=== PATIENT | female | born 1955 | race Caucasian/White ===

== ENCOUNTER 2018-10-09 08:12 | Outpatient (CLI) | payer BC ==
--- NOTE | 2018-10-09 14:08 | MMO ---
Bilateral MAMMO Bilat Screen DDI. CLINICAL HISTORY: Patient is 63 years old and is seen for screening. The patient has no family history of breast cancer. The patient has no personal history of cancer. VIEWS: The views performed were: bilateral craniocaudal and bilateral mediolateral oblique. This study has been interpreted with the assistance of computer-aided detection. MAMMOGRAM FINDINGS: There are scattered fibroglandular densities. There are calcifications seen in the upper-outer region of the left breast. In the right breast, there are no suspicious masses, calcifications or areas of architectural distortion. IMPRESSION: CALCIFICATIONS IN THE LEFT BREAST REQUIRE ADDITIONAL EVALUATION. ADDITIONAL IMAGING. ACR BI-RADS Category 0 - Incomplete: Need additional imaging evaluation. [facility] will notify the patient of the need for additional imaging services. MAMMOGRAPHY NOTE: 1. A negative mammogram report should not delay a biopsy if a dominant of clinically suspicious mass is present. 2. Approximately 10% to 15% of breast cancers are not detected by mammography. 3. Adenosis and dense breasts may obscure an underlying neoplasm.
== END 2018-10-09 08:13 | disposition home or self-care (01) ==
LOC: SCSMAMMO 08:12
PROVIDERS: ATTEND Family Medicine
DX: Z12.31 Encounter for screening mammogram for malignant neoplasm of breast (principal); R92.0 Mammographic microcalcification found on diagnostic imaging of breast
CPT/HCPCS: 77067

== ENCOUNTER 2018-10-20 14:07 | Outpatient (CLI) | payer BC ==
--- NOTE | 2018-10-20 15:01 | MMO ---
Left Breast MAMMO Unilat Diag DDI LT+MISTY. CLINICAL HISTORY: Patient is 63 years old and is seen for diagnostic exam. VIEWS: The views performed were: . FILMS COMPARED: The present examination has been compared to a prior imaging study performed at [facility] on 10/09/2018. MAMMOGRAM FINDINGS: The additional views show pleomorphic calcifications. IMPRESSION: FINDING IN THE LEFT BREAST IS SUSPICIOUS. A STEREOTACTIC BREAST BIOPSY IS RECOMMENDED. RESULTS DISCUSSED WITH DR. HADLEY 10/20/18 THE RESULTS OF THIS EXAM WERE SENT TO THE PATIENT. ACR BI-RADS Category 4 - Suspicious abnormality - biopsy should be considered MAMMOGRAPHY NOTE: 1. A negative mammogram report should not delay a biopsy if a dominant of clinically suspicious mass is present. 2. Approximately 10% to 15% of breast cancers are not detected by mammography. 3. Adenosis and dense breasts may obscure an underlying neoplasm.
== END 2018-10-20 14:08 | disposition home or self-care (01) ==
LOC: BICMAMMO 14:07
PROVIDERS: ATTEND Family Medicine
DX: R92.1 Mammographic calcification found on diagnostic imaging of breast (principal)
CPT/HCPCS: G0279

== ENCOUNTER → 2019-01-19 | Day surgery (SDC) | payer BC | LOC: MAMMO 06:42 | PROVIDERS: ATTEND Family Medicine | DX: R92.8 Other abnormal and inconclusive findings on diagnostic imaging of breast (principal); Z53.9 Procedure and treatment not carried out, unspecified reason ==

== ENCOUNTER 2019-03-22 05:52 | Outpatient (CLI) | payer BC ==
[2019-03-22 09:54] LABS: #Basophils 0.1 thou/uL (0.0-0.2); #Eosinphils 0.1 thou/uL (0.0-0.7); #Lymphocytes 1.9 thou/uL (1.20-3.40); #Monocytes 0.6 thou/uL (0.11-0.59); #Neutrophils 3.1 thou/uL (1.40-6.50); %Basophils 0.9 % (0.0-1.0); %Eosinophils 2.2 % (0.0-10.0); %Monocytes 10.6 % (0.0-10.0); %Neutrophils 53.3 % (42.0-75.0); Hemoglobin 13.6 g/dL (12.0-16.0); Mean Corpuscular HGB CONC 33.2 g/dL (32.0-36.0); Mean Corpuscular Hemoglobin 28.4 pg (27.0-31.0); Mean Corpuscular Volume 85.7 fL (78.0-98.0); Mean Platelet Volume 7.8 fL (7.4-10.4); Platelet Count 285 thou/uL (130-400); RBC Distribution Width 12.7 % (11.5-14.5); Red Blood Cell (RBC) Count 4.78 mill/uL (4.20-5.40); White Blood Cell (WBC) Count 5.8 thou/uL (4.8-10.8)
[2019-03-22 10:04] LABS: Anion Gap 14 mmol/L (10-20); BUN (Urea Nitrogen) 20 mg/dL (9.8-20.1); Calc. Creatinine Clearance 0 mL/min (70-130); Calcium 9.9 mg/dL (7.8-10.44); Carbon Dioxide 27 mmol/L (23-31); Chloride 104 mmol/L (98-107); Estimated GFR-MDRD 70; Glucose 101 mg/dL (80-115); Potassium 4.4 mmol/L (3.5-5.1); Sodium 141 mmol/L (136-145)
== END 2019-03-22 05:53 | disposition home or self-care (01) ==
LOC: LABBT 05:52
PROVIDERS: ATTEND Surgery
DX: Z01.812 Encounter for preprocedural laboratory examination (principal); N63.20 Unspecified lump in the left breast, unspecified quadrant; M79.9 Soft tissue disorder, unspecified
CPT/HCPCS: 80048; 85025

== ENCOUNTER 2019-03-23 06:47 | Day surgery (SDC) | payer BC ==
[2019-03-22 09:05] VITALS: BMI 44.4
[2019-03-23] MEDS ORDERED: Bupivacaine HCl 0.5%/Epinephrine 1:200,000/PF 30 ml Vial ONE (08:29)
[2019-03-23] MEDS ORDERED: Lidocaine 2% PF 5 ML VIAL ONE (08:29)
[2019-03-23] MEDS ORDERED: Fentanyl 100 MCG/2 ML VIAL ONE ×3 (08:31→10:14)
[2019-03-23] MEDS ORDERED: Ondansetron PF 4 MG/2 ML Vial ONE (10:14)
[2019-03-23] MEDS ORDERED: PROPOFOL 200 MG/20 ML VIAL ONE (10:14)
[2019-03-23] MEDS ORDERED: Lidocaine 1% PF 5 ML VIAL ONE (10:14)
--- NOTE | 2019-03-23 10:28 | OP ---
DATE OF PROCEDURE: 03/23/2019 PREOPERATIVE DIAGNOSES: 1. Abnormal left breast mass. 2. Right upper back soft tissue mass. POSTOPERATIVE DIAGNOSES: 1. Abnormal left breast mass. 2. Right upper back soft tissue mass. PROCEDURES PERFORMED: 1. Excision of left breast mass after needle localization. 2. Excision of greater than 18 cm soft tissue mass of back excision. ANESTHESIA: General. ESTIMATED BLOOD LOSS: Minimal. COMPLICATIONS: None. SPECIMEN: Left breast mass marked with 2 short superior and 1 long lateral, sent to Path for final diagnosis. Soft tissue mass sent to Path for final diagnosis. DESCRIPTION OF PROCEDURE: The patient was taken to the operating room and placed supine on the table. After general anesthetic was obtained, the left breast was prepped and draped in a sterile fashion. Incision was made near needle localization wire. Flaps were raised superomedially, inferolaterally and then the breast specimen was removed with the needle localization wire intact. Specimen x-ray revealed the previous clip and abnormality to be in the specimen. The wound was irrigated and closed using 3-0 Vicryl, 4-0 Monocryl and Dermabond. Next, the patient was placed in left lateral decubitus position and upper right back was prepped and draped in a sterile fashion. An oblique incision was made over the soft tissue mass to the right upper back. Flaps were raised superomedially and inferolaterally around this very large soft tissue mass. Meticulous hemostasis was obtained. The mass was sent to Path for final diagnosis. A 10 round drain brought out through a stab incision and sewn in place using silk suture. The wound was closed using 3-0 Vicryl, 4-0 Monocryl, and Dermabond. The patient was sent to Recovery in stable condition. All instrument counts, needle counts and lap counts were correct. Job ID: [id number]
--- NOTE | 2019-03-23 11:17 | MMO ---
LEFT BREAST NEEDLE LOCALIZATION FOR SURGICAL EXCISION: Date: 03/23/19 HISTORY: Patient has undergone stereotactic biopsy for left breast calcification. Excision is recommended. FINDINGS: Successful left breast needle localization. 7.5 cm Bagley needle and wire were placed. Wire and needle were secured to the patient. TECHNIQUE: Successful left breast needle localization for surgical excision. The patient's left breast was evalu ated in a lateral medial projection. Calcification and previous biopsy clip identified. Skin was prep ped and draped in the sterile fashion. 1% lidocaine, buffered with sodium bicarbonate, was used for l ocal anesthesia. Under mammographic guidance, a 7.5 cm Bagley needle and wire were advanced into the l eft breast such that the needle and wire were adjacent to the clip and went through the region of josy cifications. Wire was secured to the patient. The patient tolerated the procedure well. No immediate or postprocedure complications. MAMMOGRAM SURGICAL SPECIMEN: Calcifications and clip are present in the surgical specimen. Findings conveyed to Ivis, the OR nurse, on 03/23/19 at 0918 hours. CODE CR. POS: [place]
[2019-03-23] MEDS ORDERED: HYDROcodone/Acetaminophen 5/325 mg Tablet ONE ×2 (12:00→12:37)
== END 2019-03-23 13:52 | disposition home or self-care (01) ==
LOC: SDC 06:47
PROVIDERS: ATTEND Surgery
PROC: 0JB70ZZ Excision of Back Subcutaneous Tissue and Fascia, Open Approach (ICD-10-PCS; principal; 2019-03-23)
PROC: 0HBU0ZZ Excision of Left Breast, Open Approach (ICD-10-PCS; principal; 2019-03-23)
DX: N60.92 Unspecified benign mammary dysplasia of left breast (principal); D17.1 Benign lipomatous neoplasm of skin and subcutaneous tissue of trunk; I10 Essential (primary) hypertension; Z79.4 Long term (current) use of insulin; Z91.048 Other nonmedicinal substance allergy status
CPT/HCPCS: 19281; 76098; 88304; 88307; J0670; J0690; J2001; J2405; J2704; J3010

== ENCOUNTER 2023-03-03 08:56 | Outpatient (CLI) | payer BC ==
[2023-03-03 11:49] LABS: #Basophils 0.1 10x3/uL (0.0-0.2); #Eosinphils 0.1 10x3/uL (0.0-0.5); #Monocytes 0.6 10x3/uL (0.0-1.1); #Neutrophils 4.1 10x3/uL (1.5-8.4); %Basophils 0.9 % (0.0-2.0); %Eosinophils 0.9 % (0.0-6.0); %Lymphocytes 25.3 % (18.0-47.0); %Monocytes 9.5 % (0.0-10.0); %Neutrophils 62.9 % (40.0-75.0); Hematocrit 44.1 % (34.9-44.5); Hemoglobin 13.9 g/dL (12.0-15.5); Mean Corpuscular HGB CONC 31.5 g/dL (32.0-36.0); Mean Corpuscular Hemoglobin 27.8 pg (27.0-33.0); Mean Corpuscular Volume 88.2 fl (81.6-98.3); Mean Platelet Volume 10.6 fl (7.4-10.4); Platelet Count 338 10x3/uL (150-450); RBC Distribution Width 14.2 % (11.5-14.5); White Blood Cell (WBC) Count 6.5 10x3/uL (3.5-10.5)
[2023-03-03 12:03] LABS: Anion Gap 15 mmol/L (10-20); BUN (Urea Nitrogen) 19 mg/dL (9.8-20.1); Calc. Creatinine Clearance 0 mL/min (70-130); Calcium 9.9 mg/dL (7.8-10.44); Carbon Dioxide 28 mmol/L (23-31); Chloride 101 mmol/L (98-107); Estimated GFR 72; Glucose 107 mg/dL (80-115); Potassium 5.2 mmol/L (3.5-5.1); Sodium 139 mmol/L (136-145)
== END 2023-03-03 08:57 | disposition home or self-care (01) ==
LOC: LABBT 08:56
PROVIDERS: ATTEND Surgery
DX: Z01.818 Encounter for other preprocedural examination (principal); E66.01 Morbid (severe) obesity due to excess calories
CPT/HCPCS: 80048; 85025; 93005; 93010

== ENCOUNTER 2023-03-03 09:00 | Inpatient (IN) | payer BC, MEDICARE ==
[2023-03-03 09:47] VITALS: BMI 54.9
[2023-03-20] MEDS ORDERED: SUGAMMADEX SODIUM 200 MG/2 ML VIAL ONE (06:56)
[2023-03-20] MEDS ORDERED: KETAMINE 100 MG/ML (5ML VIAL) ONE (06:57)
[2023-03-20] MEDS ORDERED: Propofol 500 MG/50 ML VIAL ONE (06:57)
[2023-03-20] MEDS ORDERED: fentaNYL PF 100 MCG/2 ML SYRINGE ONE (06:57)
[2023-03-20] MEDS ORDERED: Dexmedetomidine 200 MCG/2 ML VIAL ONE (06:58)
[2023-03-20] MEDS ORDERED: EPINEPHrine 1 MG/ML VIAL ONE (06:58)
[2023-03-20] MEDS ORDERED: Bupivacaine 0.25% HCL 30 ML VIAL ONE (06:59)
[2023-03-20] MEDS ORDERED: CEFAZOLIN 2 GM VIAL ONE (07:32)
[2023-03-20] MEDS ORDERED: Sodium Chloride 0.9% 100 ML ONE (07:32)
[2023-03-20] MEDS ORDERED: Ondansetron PF 4 MG/2 ML Vial ONE (07:41)
[2023-03-20] MEDS ORDERED: Dexamethasone 20 MG/5 ML VIAL ONE (07:41)
[2023-03-20] MEDS ORDERED: Lidocaine 1% PF 5 ML VIAL ONE (07:41)
[2023-03-20] MEDS ORDERED: PHENYLEPHRINE-NS 100 MCG/ML 10 ML SYRINGE ONE (07:41)
[2023-03-20] MEDS ORDERED: Ketorolac Tromethamine 30 MG/ML VIAL ONE (07:41)
[2023-03-20] MEDS ORDERED: NEOSTIGMINE 3 MG/3 ML SYR 3 MG/3 ML SYRINGE ONE (07:41)
[2023-03-20] MEDS ORDERED: Glycopyrrolate 0.2 MG/ML 5 ML SYRINGE ONE (07:41)
[2023-03-20] MEDS ORDERED: Labetalol HCl 100 MG/20 ML VIAL ONE (07:41)
[2023-03-20] MEDS ORDERED: PROPOFOL 200 MG/20 ML VIAL ONE (07:41)
[2023-03-20] MEDS ORDERED: Rocuronium Bromide 10 MG/ML (10ML VIAL) ONE (07:41)
[2023-03-20] MEDS ORDERED: diphenhydrAMINE 25 MG CAP PO PRN (08:31)
[2023-03-20] MEDS ORDERED: diphenhydrAMINE 50 MG/ML VIAL IVP PRN ×2 (08:31→09:48)
[2023-03-20] MEDS ORDERED: Naloxone HCl 0.4 mg/ml Vial IV PRN (08:31)
[2023-03-20] MEDS ORDERED: Ondansetron HCl/PF 4 MG/2 ML Vial IVP PRN (08:31)
[2023-03-20] MEDS ORDERED: Promethazine HCl 25 MG/ML VIAL IM PRN ×3 (08:31→09:48)
[2023-03-20] MEDS ORDERED: Ondansetron PF 4 MG/2 ML Vial IVP PRN ×2 (08:31→09:48)
[2023-03-20] MEDS ORDERED: FENTANYL 500 MCG/10 ML VIAL 2,000 MCG in Sodium Chloride 0.9% 60 ML IV PRN (08:31)
[2023-03-20] MEDS ORDERED: diphenhydrAMINE 50 MG/ML VIAL IM PRN (08:31)
[2023-03-20] MEDS ORDERED: Communication Order-Pharmacy FS SCH (08:45)
[2023-03-20] MEDS ORDERED: fentaNYL 50 mcg/mL 1 mL Vial ONE (09:34)
[2023-03-20] MEDS ORDERED: hydrALAZINE 20 MG/ML VIAL SLOW IVP PRN (09:48)
[2023-03-20] MEDS ORDERED: Dextrose 5% in Water 1,000 ML IV PRN (09:48)
[2023-03-20] MEDS ORDERED: Ipratropium/Albuterol 3 ML NEB NEB PRN (09:48)
[2023-03-20] MEDS ORDERED: Hydrocodone-Acetamin 15 ML UDCUP PO PRN (09:48)
[2023-03-20] MEDS ORDERED: Dextrose 50% Abboject 50 ML SYRINGE SLOW IVP PRN (09:48)
[2023-03-20] MEDS ORDERED: Glucagon 1 MG/ML KIT IM PRN (09:48)
[2023-03-20] MEDS: D5 1/2 NS w/20 mEq KCL 1,000 ML IV SCH ×2 (11:55→17:57)
[2023-03-21] MEDS: D5 1/2 NS w/20 mEq KCL 1,000 ML IV SCH (04:28)
[2023-03-21 06:22] LABS: #Monocytes 1.1 thou/uL (0.11-0.59); #Neutrophils 8.3 thou/uL (1.40-6.50); %Basophils 0.1 % (0.0-1.0); %Lymphocytes 8.3 % (21.0-51.0); %Monocytes 10.6 % (0.0-10.0); %Neutrophils 80.6 % (42.0-75.0); Hematocrit 38.1 % (36.0-47.0); Hemoglobin 12.2 g/dL (12.0-16.0); Mean Corpuscular Hemoglobin 28.4 pg (27.0-31.0); Mean Corpuscular Volume 88.8 fl (78.0-98.0); Mean Platelet Volume 10.9 fL (7.4-10.4); Platelet Count 309 10x3/uL (130-400); RBC Distribution Width 14.1 % (11.5-14.5); Red Blood Cell (RBC) Count 4.29 mill/uL (4.20-5.40); White Blood Cell (WBC) Count 10.3 10x3/uL (4.8-10.8)
[2023-03-21 07:00] LABS: Anion Gap 18 mmol/L (10-20); BUN (Urea Nitrogen) 12 mg/dL (9.8-20.1); Calc. Creatinine Clearance 176 mL/min (70-130); Calcium 8.7 mg/dL (7.8-10.44); Carbon Dioxide 20 mmol/L (23-31); Chloride 105 mmol/L (98-107); Estimated GFR 85; Glucose 103 mg/dL (80-115); Potassium 4.7 mmol/L (3.5-5.1); Sodium 138 mmol/L (136-145)
[2023-03-21] MEDS ORDERED: Hydrocodone-Acetamin 15 ML UDCUP PO PRN (07:09)
[2023-03-21] MEDS ORDERED: Escitalopram Oxalate 10 mg Tablet PO SCH (09:00)
[2023-03-21] MEDS ORDERED: Pantoprazole 40 MG VIAL IVP SCH (09:00)
[2023-03-21 13:10] VITALS: BP 111/73; TEMP 97.8
== END 2023-03-21 13:46 | disposition home or self-care (01) | DRG 621 ==
LOC: SURG A 03-20 06:06 → SJJU 03-20 11:28
PROVIDERS: ADMIT Surgery; ATTEND Surgery
PROC: 0DB64Z3 Excision of Stomach, Percutaneous Endoscopic Approach, Vertical (ICD-10-PCS; principal; 2023-03-20)
PROC: 8E0W4CZ Robotic Assisted Procedure of Trunk Region, Percutaneous Endoscopic Approach (ICD-10-PCS; 2023-03-20)
DX: E66.01 Morbid (severe) obesity due to excess calories (principal); Z68.43 Body mass index [BMI] 50.0-59.9, adult; I10 Essential (primary) hypertension; K21.9 Gastro-esophageal reflux disease without esophagitis; G47.33 Obstructive sleep apnea (adult) (pediatric); E11.9 Type 2 diabetes mellitus without complications; Z98.890 Other specified postprocedural states; Z88.8 Allergy status to other drugs, medicaments and biological substances
CPT/HCPCS: 36415; 36416; 80048; 85025; 88307; C9113; J0171; J1100; J1650; J1885; J2405; J2704; J3010; J3480; J3490; S0020